=== PATIENT | female | born 1945 ===

== ENCOUNTER → 2022-02-26 09:54 | Outpatient (BNVA) | payer MEDICARE, OTHER, SELFPAY | PROVIDERS: PCP Internal Medicine; Visit Provider Psychiatry & Neurology Neurology | DX: G24.4 Idiopathic orofacial dystonia (principal); G47.00 Insomnia, unspecified | CPT/HCPCS: 99202 ==

== ENCOUNTER → 2022-04-11 09:49 | Outpatient (BNVA) | payer MEDICARE, OTHER, SELFPAY | PROVIDERS: PCP Internal Medicine; Visit Provider Nurse Practitioner Family | DX: G24.4 Idiopathic orofacial dystonia (principal) | CPT/HCPCS: 99212 ==

== ENCOUNTER → 2022-05-28 10:00 | Outpatient (BNVA) | payer MEDICARE, OTHER, SELFPAY | PROVIDERS: PCP Internal Medicine; Visit Provider Nurse Practitioner Family | DX: G24.4 Idiopathic orofacial dystonia (principal); G47.00 Insomnia, unspecified | CPT/HCPCS: 99212 ==